=== PATIENT | female | born 1995 | race Caucasian/White ===

== ENCOUNTER 2017-11-09 21:50 | Emergency (ER) | payer BC ==
[~2017-11-09] VITALS: Ht 162.6 cm; Wt 51.7 kg
[2017-11-09 21:52] VITALS: TEMP 37.7; O2SAT 100; Ht 162.6 cm; Wt 51.7 kg
[2017-11-09] MEDS ORDERED: EpINEphrine INJ 1MG/ML AMP 1 MG/ML AMP IM STA (22:04)
[2017-11-09] MEDS ORDERED: FAMOTIDINE 20MG/5ML IV PUSH IV STA (22:06)
[2017-11-09] MEDS ORDERED: DEXAMETHASONE **PF** INJ 10 MG/ML VIAL IV ONE (22:15)
[2017-11-09] MEDS ORDERED: BCPILLS PO (22:30)
--- NOTE | 2017-11-09 22:39 | EMERGENCY ROOM VISIT NOTE ---
History Report prepared by Suhas: Jeffrey Greene Under the Supervision of: Dr. Manuel Helton M.D. First contact with patient: 21:58 Chief Complaint: ALLERGIC REACTION Stated Complaint: ALLERGIC REACTION History of Present Illness The patient is a 22 year old female who presents to the Emergency Room via EMS with complaints of a persistent allergic reaction that started around an hour ago. She states that she has no idea what caused the reaction, as she last ate around 1730 this evening, and asked if there were any nuts in the food, as she is allergic to nuts. The patient says that she was walking to a meeting, not doing anything out of the ordinary, and she started breaking out in hives, and got short of breath. She notes that a couple years ago she had an allergic reaction very similar to this one when [place] was in [place] She says that she feels itchy, and her face feels puffy. She adds that when it first started, she felt lightheaded. The patient states that she currently feels a bit worse than she did when it first started, as her throat and breathing feel tight. She notes that she gave herself 1 Benadryl upon the start of her allergic reaction. Pt denies LOC, headache, fevers, chills, diaphoresis, visual changes, neck pain , chest pain, vomiting, abdominal pain, back pain, melena, hematochezia, urinary symptoms, numbness, weakness, or other complaints. Source of History: patient Onset: An hour ago Position: other (global) Quality: other (allergic reaction) Timing: other (persistent) Associated Symptoms: + SOB, + rash Note: Associated symptoms: Face itchy and puffy. Lightheaded initially. Review of Systems See HPI for pertinent positives and negatives. A total of ten systems were reviewed and were otherwise negative. Past Medical & Surgical Medical Problems: (1) No chronic diseases present Family History No pertinent family history Social History Smokeless Tobacco Use: No Drug Use: none Housing Status: lives with roommate Occupation Status: student Current/Historical Medications Scheduled Control Pills ( Control Pills), 1 TAB PO DAILY Allergies Coded Allergies: Cashew (Verified Allergy, Severe, VIOLENT [id number] SWELL, 11/09/17 ) Peanut (Verified Allergy, Severe, VIOLENT [id number] SWELL, 11/09/17 ) Pistachio (Verified Allergy, Severe, VIOLENT [id number] SWELL, 11/09) Sesame Seed (Verified Allergy, Severe, VIOLENT [id number] SWELL, ) Physical Exam Vital Signs Date Time Temp Pulse Resp B/P (MAP) Pulse Ox O2 Delivery O2 Flow Rate FiO2 11/09/17 23:15 94 20 126/85 99 Room Air 11/09/17 22:40 112 18 97/79 100 Nasal Cannula 2.0 11/09/17 22:05 112 11/09/17 21:52 100 Room Air 11/09/17 21:52 37.7 116 20 121/94 100 Room Air 11/09/17 21:52 100 Room Air Physical Exam GENERAL: Awake, alert, well-appearing, in moderate distress HENT: Normocephalic, atraumatic. Oropharynx unremarkable. EYES: Normal conjunctiva. Sclera non-icteric. NECK: Supple. No nuchal rigidity. FROM. No masses. RESPIRATORY: Clear to auscultation. No wheezes. No rales. Normal respiratory effort. CARDIAC: Tachycardic rate. Normal rhythm. No murmurs. No rubs. Extremities warm and well perfused. Pulses equal. No JVD. GI: Soft, non-distended. No tenderness to palpation. No rebound or guarding. No masses. RECTAL: Deferred. MUSCULOSKELETAL: Atraumatic. Chest examination reveals no tenderness. The back is symmetrical on inspection without obvious abnormality. There is no CVA tenderness to palpation. No joint edema. LOWER EXTREMITIES: Calves are equal size bilaterally and non-tender. No edema. No discoloration. NEURO: Normal sensorium. No sensory or motor deficits noted. SKIN: Scattered hives on trunk and upper extremities. Medical Decision & Procedures Medications Administered Medications (Trade) Dose Ordered Sig/Allen Route Start Time Stop Time Status Last Admin Dose Admin Epinephrine HCl (EpINEphrine INJ 1MG/ML AMP/VIAL) 0.3 mg NOW STAT IM 11/09/17 22:04 11/09/17 22:05 DC 11/09/17 22:09 0.3 MG Famotidine (Pepcid 20mg Iv Push) 20 mg ONE STAT IV 11/09/17 22:06 11/09/17 22:08 DC 11/09/17 22:13 20 MG Dexamethasone Sodium Phosphate (Dexamethasone Inj Pf) 10 mg NOW ONCE IV 11/09/17 22:15 11/09/17 22:16 DC 11/09/17 22:13 10 MG ED Course 2199: The patient was evaluated in room B7. A complete history and physical exam was performed. 2203: Epinephrin Inj 1MG/ML AMP/VIAL 0.3 mg IM. 2205: Pepcid 20mg IV Push. 2225: I reevaluated the patient and she is feeling better. 2254: I reevaluated the patient and she is resting comfortably. 2354: Patient reassessed. All symptoms resolved. She feels well. Discussed Conservative treatment. Patient feels comfortable. She will be provided an EpiPen to go as she is visiting. Dexamethasone Inj 10 mg IV. return instructions outlined. Medical Decision Prior records/ancillary studies reviewed. Triage Nursing notes reviewed and agree them. Additional history obtained from EMS The patient's history was concerning for possible allergic reaction. Differential diagnosis: Etiologies such as allergic reaction, anaphylaxis, urticaria, Samaniego-Derek syndrome, toxic epidermal necrolysis, erythema multiforme, cellulitis, as well as others were entertained. Physical examination: As above. ER treatment provided: Continuous cardiac monitoring Pepcid 20 mg IV Decadron 10 mg IV IM epinephrine 0.3 mg. On reassessment the patient felt significantly better. Diagnostic interpretation by me: Cardiac monitoring: The patient was placed on continuous cardiac monitoring and observed. It revealed a sinus rhythm without ectopy or evidence of dysrhythmia. Mild tachycardia noted. It appears the patient had an allergic reaction. The above treatment did well to reverse the symptoms. After prolonged monitoring and frequent reassessments the patient did very well and symptoms resolved. By the evaluation outlined above emergent etiologies such as airway compromise, Samaniego-Derek syndrome, toxic epidermal necrolysis, erythema multiforme, cellulitis, as well as others were deemed relatively unlikely. The patient was informed about the findings as listed above. All questions were answered and she was pleased with the treatment. Return instructions were outlined and the patient was discharged in stable condition. Outpatient prescription management: EpiPen prednisone Referral: The patient was referred back to her primary care physician for follow-up in 3 days for a recheck of the current condition. Medication Reconcilliation Current Medication List: was personally reviewed by me Blood Pressure Screening Patient's blood pressure: Normal blood pressure Impression Primary Impression: Anaphylaxis Scribe Attestation The scribe's documentation has been prepared under my direction and personally reviewed by me in its entirety. I confirm that the note above accurately reflects all work, treatment, procedures, and medical decision making performed by me. Departure Information Dispostion Home / Self-Care Prescriptions Prednisone (Prednisone) 50 Mg Tab 50 MG PO DAILY for 3 Days, #3 TAB Prov: Manuel eHlton MD 11/09/17 Patient Instructions My [facility] Additional Instructions ALLERGIC REACTION INSTRUCTIONS: DO NOT drive, drink alcohol, operate machinery, or perform dangerous activities today. You were given medications in the ER that can affect your ability to safely function or operate a vehicle. Epi-Pen: Use one injection as instructed for severe allergic reactions associated with shortness of breath, difficulty breathing, or throat or tongue swelling. If you use this injection call 911 or proceed immediately to the nearest Emergency Room. Prednisone 50mg: Once daily until the prescription is finished. It is best to take this earlier in the day as some patients note occasional difficulty falling asleep when taken in the late evening. Diphenhydramine(Benadryl) 25mg: use 25 to 50 mg every six hours for swelling, itching, or hives. This medication is sedating and will cause drowsiness. Avoid alcohol, operating machinery or dangerous equipment, working on ladders or roofs, DRIVING, or situations where being under the influence may be dangerous. Zantac 75: Take two pills twice a day along with Benadryl as needed for swelling , itching, or hives. Most people know this for its affect on the stomach, but it also acts similar to, but less potent than Benadryl for allergic reactions. Both the Benadryl and the Zantac are available [id number]. Continue current medications. Return to the emergency department for worsening of your rash, swelling of your face, lips, tongue, or throat, difficulty breathing, vomiting, or as needed. Follow-up with S in 2 to 3 days for a recheck of your current condition.
[2017-11-09] MEDS ORDERED: PRED50TA PO (23:56)
[2017-11-09] MEDS ORDERED: EPINEPHRINE ADULT AUTO-INJECT 0.3 MG SYR IM STA (23:57)
[2017-11-10 00:03] VITALS: BP 100/68; PULSE 83; O2SAT 99
== END 2017-11-10 00:05 | disposition home or self-care (01) ==
LOC: C.EDB 21:54
DX: T78.2XXA Anaphylactic shock, unspecified, initial encounter (principal); X58.XXXA Exposure to other specified factors, initial encounter; Z79.3 Long term (current) use of hormonal contraceptives; Z91.010 Allergy to peanuts; Z91.018 Allergy to other foods